=== PATIENT | female | born 1945 | race Caucasian/White ===

== ENCOUNTER → 2017-03-31 | Outpatient (CLI) | payer MEDICARE ==
[~2017-03-31] MED LIST: ALBU18HF2 IH; ASCO500C15 PO; ASPI-1159 PO; ATOR20TA PO; CLOP75TA2 PO; FERR-63 PO; FLUC100T42 PO; FLUT1DIS3 IH; IRON; LINA5TAB PO; NEBI5TAB3 PO; NITR-36 PO; NITR100C2 PO; ROSU20TA PO; SENN-22 PO
[2017-03-31 10:05] LABS: CARBON DIOXIDE 32 mEq/L (21-32); CHLORIDE 103 mEq/L (98-107)
[2017-03-31 10:07] LABS: CLARITY URINE CLEAR (CLEAR); COLOR URINE YELLOW (YELLOW); GLUCOSE URINE NEGATIVE (NEGATIVE); KETONES URINE NEGATIVE (NEGATIVE); LEUKOCYTE ESTERASE URINE 2+ (NEGATIVE); NITRITE URINE NEGATIVE (NEGATIVE); OCCULT BLOOD URINE NEGATIVE (NEGATIVE); PH URINE 5.5 (4.5-8.0); PROTEIN URINE NEGATIVE (NEGATIVE); SPECIFIC GRAVITY URINE 1.009 (1.005-1.030); UROBILINOGEN URINE 0.2 E.U./dL (0.2-1.0)
[2017-03-31 10:59] LABS: BASOPHILS % 0.6 % (0.0-2.0); EOSINOPHILS % 1.8 % (0.0-5.0); HEMATOCRIT. 38.1 % (36.0-48.0); HEMOGLOBIN. 13.1 g/dL (12.0-16.0); LYMPHOCYTES % 22.7 % (20.0-50.0); MEAN CORPUSCULAR HEMOGLOBIN 29.3 pg (28.0-32.0); MEAN CORPUSCULAR VOLUME 85.2 fL (81.0-99.0); MEAN PLATELET VOLUME 8.1 fl (7.4-10.4); MONOCYTES % 7.7 % (2.0-8.0); NEUTROPHILS % 67.2 % (40.0-76.0); PLATELET 187 x1000/uL (130-400); RED BLOOD CELL COUNT 4.47 mill/uL (4.2-5.4); RED CELL DISTRIBUTION WIDTH 13.3 % (11.6-14.6)
== END | disposition home or self-care (01) ==
LOC: EDBD → LAB 09:19
PROVIDERS: ATTEND Urology
DX: N20.1 Calculus of ureter (principal); N39.0 Urinary tract infection, site not specified
CPT/HCPCS: 36415; 80048; 81001; 85025; 87086

== ENCOUNTER 2017-04-01 05:41 | Day surgery (SDC) | payer MEDICARE ==
[2017-03-31 10:28] LABS: PARTIAL THROMBOPLASTIN TIME 27.1 sec (23.4-31.0); PROTHROMBIN TIME 10.3 sec (9.4-11.6)
[~2017-04-01] VITALS: Ht 160 cm; Wt 55.8 kg
[~2017-04-01 05:41] MED LIST changes: +CLOP75TA16 PO; -CLOP75TA2 PO; -FLUC100T42 PO; -NITR-36 PO; +NITR-82 PO; +NITR100C PO; -NITR100C2 PO; -SENN-22 PO
[2017-04-01] MEDS ORDERED: FLUC100T42 PO (06:50)
[2017-04-01] MEDS ORDERED: SENN-22 PO (06:50)
[2017-04-01] MEDS ORDERED: FENTANYL CITRATE/PF 50MCG/ML 2ML VIAL ONE (07:42)
[2017-04-01] MEDS ORDERED: MIDAZOLAM HCL 2 MG/2 ML VIAL ONE (07:42)
[2017-04-01] MEDS ORDERED: IOHEXOL-300 100 ML BOTTLE ONE (07:45)
[2017-04-01] MEDS ORDERED: LIDOCAINE HCL 1% 20ML VIAL (Pyxis) INJ ONE (08:15)
[2017-04-01] MEDS ORDERED: DEXAMETHASONE 4MG/ML 1ML VIAL ONE (08:15)
[2017-04-01] MEDS ORDERED: PROPOFOL 200MG/20ML VIAL IV ONE (08:15)
[2017-04-01] MEDS ORDERED: ONDANSETRON HCL 4MG/2ML VIAL ONE (08:16)
[2017-04-01] MEDS ORDERED: MEPERIDINE HCL/PF 25MG/ML CPJ IV PRN (08:30)
[2017-04-01] MEDS ORDERED: LABETALOL HCL 20MG/4ML CARPUJECT IV PRN (08:30)
[2017-04-01] MEDS ORDERED: ONDANSETRON HCL 4MG/2ML VIAL IV PRN (08:30)
[2017-04-01] MEDS ORDERED: HYDROMORPHONE HCL/PF 2MG/ML CPJ IV PRN (08:30)
== END 2017-04-01 10:20 | disposition home or self-care (01) ==
LOC: OR 05:41
PROVIDERS: ATTEND Urology
DX: N13.6 Pyonephrosis (principal); I10 Essential (primary) hypertension; J45.909 Unspecified asthma, uncomplicated; E11.8 Type 2 diabetes mellitus with unspecified complications
CPT/HCPCS: 36415; 52005; 52332; 71010; 74420; 82962; 85610; 85730; 93005; C2617; J1100; J2250; J2405; J3010; J3490; J7120; Q9967; J2704